=== PATIENT | female | born 1975 | race Caucasian/White ===

== ENCOUNTER 2016-03-24 14:20 | Emergency (ER) | payer MEDICAID ==
[~2016-03-24] VITALS: Wt 70.0 kg
[~2016-03-24 14:20] MED LIST: DOCU-144 PO
--- NOTE | 2016-03-24 14:43 | ERD ---
ER Documentation Chief Complaint Date/Time DATE: 03/24/16 TIME: 14:36 Chief Complaint COUGH AND CONGESTION AND FEVERS FOR THE PAST 10 DAYS. HPI The patient is a 40-year-old female with no significant past medical or surgical history here with 2 weeks of productive cough of yellow/green sputum, chest congestion, and tactile fevers intermittently. She denies nausea, vomiting , diarrhea, chest pain, shortness of breath, difficulty breathing, sore throat, ear pain, headache, neck soreness or stiffness, dysuria, flank pain, or any other symptoms or concerns at this time. She is a nonsmoker. Sick contacts in the home with same symptoms. No recent international travel. She has tried Robitussin for her cough without much relief. Her symptoms are neither improving nor worsening. ROS All systems reviewed and are negative except as per history of present illness. Medications Home Meds Active Scripts Albuterol Sulfate* (Ventolin HFA*) 18 Gm Hfa.aer.ad, 2 PUFF INHALATION Q6H, #1 INHALER Prov:SIERRA BARKER, SUPERVISOR BOILER REPAIR 03/24/16 Benzonatate* (Tessalon Perle*) 100 Mg Capsule, 100 MG PO Q8H Y for COUGH for 5 Days, CAP Prov:SIERRA BARKER, SUPERVISOR BOILER REPAIR 03/24/16 Azithromycin* (Zithromax*) 250 Mg Tablet, 250 MG PO .ZPACK DIRECTED, #6 TAB TAKE 500 MG (2 TABS) THE FIRST DAY THEN 250 MG (1 TAB) DAYS 2-5 Prov:SIERRA BARKER, SUPERVISOR BOILER REPAIR 03/24/16 Acetaminophen* (Tylenol*) 325 Mg Tablet, 2 TAB PO Q6 Y for PAIN AND OR ELEVATED TEMP, #20 TAB Prov:SIERRA BARKER, SUPERVISOR BOILER REPAIR 03/24/16 Docusate Sodium* (Colace*) 100 Mg Capsule, 100 MG PO TID, #30 CAP Prov:GEORGINA NIELSEN 07/21/15 Allergies Allergies: Coded Allergies: No Known Allergies (Verified Allergy, Mild, 01/16/10) PMhx/Soc History of Surgery: Yes (CS x2, LEFT KNEE SX) Anesthesia Reaction: No Hx Neurological Disorder: No Hx Respiratory Disorders: No Hx Cardiac Disorders: No Hx Psychiatric Problems: No Hx Miscellaneous Medical Probl: Yes (GASTRITIS) Hx Alcohol Use: No Hx Substance Use: No Hx Tobacco Use: No Physical Exam Vitals Vital Signs Date Time Temp Pulse Resp B/P Pulse Ox O2 Delivery O2 Flow Rate FiO2 03/24/16 14:22 98.8 78 20 113/57 98 Physical Exam INITIAL VITAL SIGNS: Reviewed by me, afebrile, no tachycardia, no tachypnea, oximetry 98% on room air. GENERAL: Alert. Well developed and well nourished. No respiratory distress. No acute distress. Nontoxic appearing. HEAD: Head is normocephalic. Atraumatic. No sinus tenderness to palpation. EYES: EOMI. No scleral icterus. No conjunctival injection. No clear or purulent drainage. ENT: External ears, nose, and mouth normal. Ear canals clear. Tympanic membranes without erythema, bulging, or effusion. Oropharynx is clear. Tonsils + 2 and without erythema or exudates. Uvula midline. Airway patent. Nasal passages patent and without rhinorrhea. Moist mucous membranes. NECK: Supple. Full range of motion. Trachea midline. No lymphadenopathy. RESPIRATORY: No tachypnea. Clear to auscultation bilaterally. No wheezing, rales , or rhonchi. CV: Regular rate and rhythm. No murmurs, rubs, or gallops ABDOMEN: Soft, non-distended, non-tender. Bowel sounds normal in all quadrants. BACK: No CVA tenderness. Full ROM. EXTREMITIES: No obvious deformity. No clubbing or cyanosis. No edema. SKIN: Warm and dry. No diaphoresis. No obvious rashes or lesions. NEUROLOGIC: Alert and oriented x 3. Appropriate. Face is symmetric. Speech is normal. Moves all extremities equally. Procedures/MDM Nursing Notes Reviewed Previous Medical Records requested via [employer]. EMERGENCY DEPARTMENT COURSE / MEDICAL DECISION MAKING: The patient comes to the ED secondary to productive cough of green/yellow sputum , chest congestion, and subjective fevers 2 weeks. Differential diagnosis upon initial evaluation includes but is not limited to: Pneumonia, sepsis, meningitis, bronchitis, viral syndrome, URI, and others. Given the patient's history of present illness, benign physical exam, oximetry 98% on room air, no tachypnea, no tachycardia, well appearance, no neck soreness or stiffness, no headache, and clear lung sounds, I have low suspicion at this time for pneumonia, sepsis, meningitis, or any other serious cause of the patient's symptoms. As such, I believe she is an appropriate candidate for outpatient management and follow-up at this time. Final impression: Bronchitis Based on patient's history of present illness and physical examination the decision was made to discharge. There is no evidence of life threatening injuries or illnesses at this time. On re-examination, patient resting in no distress, stable vital signs, reports feeling safe for discharge with outpatient follow up with PMD in 2-3 days. Patient given return precautions. She verbalized understanding and agreed to return precautions. All of her questions and concerns were addressed prior to discharge. She agrees with the plan of care and will follow up as directed. I believe treatment with antibiotics is warranted as her symptoms have lasted 2 weeks. I instructed the patient to please get plenty of fluids and plenty of rest, cover her cough, and perform good hand hygiene. She verbalized understanding and agreed. She will return immediately for any new or worsening symptoms. Prescription Azithromycin Tessalon Perles Albuterol inhaler Tylenol Departure Diagnosis: Primary Impression: Bronchitis Condition: Stable SIERRA BARKER NP Mar 24, 2016 14:43
[2016-03-24] MEDS ORDERED: BENZ100C70 PO (14:45)
[2016-03-24] MEDS ORDERED: ACET325T33 PO (14:45)
[2016-03-24] MEDS ORDERED: AZIT250T94 PO (14:45)
[2016-03-24] MEDS ORDERED: ALBU18HF INHALATION (14:46)
== END 2016-03-24 14:47 | disposition home or self-care (01) ==
LOC: FTE 14:20 → E/R 14:47
DX: J20.9 Acute bronchitis, unspecified (principal)
CPT/HCPCS: 99284

== ENCOUNTER 2016-11-21 13:37 | Emergency (ER) | payer MEDICAID ==
[~2016-11-21] VITALS: Wt 77.0 kg
[~2016-11-21 13:37] MED LIST changes: +ACET325T33 PO; +ALBU18HF INHALATION; +AZIT250T94 PO; +BENZ100C70 PO
[2016-11-21] MEDS ORDERED: KETOROLAC 30 MG INJ IM STA (14:18)
--- NOTE | 2016-11-21 14:26 | ERD ---
ER Documentation Chief Complaint Date/Time DATE: 11/21/16 TIME: 14:25 Chief Complaint left shoulder pain, onset 4 days HPI This is a 38-year-old female who presents the emergency department today complaining of left arm pain for many years since 2010 states it is getting worse. States that she has been told she has tendinitis. States she takes tramadol for pain. Denies any new trauma, fevers or chills. States he has an appointment next week at [facility]. ROS All systems reviewed and are negative except as per history of present illness. Medications Home Meds Active Scripts Naproxen* (Naprosyn*) 500 Mg Tablet, 500 MG PO BID Y for PAIN AND/OR INFLAMMATION, #30 TAB Prov:DENICE STOCK PA-C 11/21/16 Albuterol Sulfate* (Ventolin HFA*) 18 Gm Hfa.aer.ad, 2 PUFF INHALATION Q6H, #1 INHALER Prov:SIERRA BARKER, QUALITY ASSURANCE PRACTICE MANAGER 03/24/16 Benzonatate* (Tessalon Perle*) 100 Mg Capsule, 100 MG PO Q8H Y for COUGH for 5 Days, CAP Prov:SIERRA BARKER, QUALITY ASSURANCE PRACTICE MANAGER 03/24/16 Azithromycin* (Zithromax*) 250 Mg Tablet, 250 MG PO .ZPACK DIRECTED, #6 TAB TAKE 500 MG (2 TABS) THE FIRST DAY THEN 250 MG (1 TAB) DAYS 2-5 Prov:SIERRA BARKER, QUALITY ASSURANCE PRACTICE MANAGER 03/24/16 Acetaminophen* (Tylenol*) 325 Mg Tablet, 2 TAB PO Q6 Y for PAIN AND OR ELEVATED TEMP, #20 TAB Prov:SIERRA BARKER, QUALITY ASSURANCE PRACTICE MANAGER 03/24/16 Docusate Sodium* (Colace*) 100 Mg Capsule, 100 MG PO TID, #30 CAP Prov:GEORGINA NIELSEN 07/21/15 Allergies Allergies: Coded Allergies: No Known Allergies (Verified Allergy, Mild, 11/21/16) PMhx/Soc History of Surgery: Yes (CS x2, LEFT KNEE SX) Anesthesia Reaction: No Hx Neurological Disorder: No Hx Respiratory Disorders: No Hx Cardiac Disorders: No Hx Psychiatric Problems: No Hx Miscellaneous Medical Probl: Yes (GASTRITIS) Hx Alcohol Use: No Hx Substance Use: No Hx Tobacco Use: No Smoking Status: Never smoker Physical Exam Vitals Vital Signs Date Time Temp Pulse Resp B/P Pulse Ox O2 Delivery O2 Flow Rate FiO2 11/21/16 13:39 98.5 80 18 121/59 98 Physical Exam Const: NAD Head: Atraumatic Eyes: Normal Conjunctiva ENT: Normal External Ears, Nose and Mouth. Neck: Full range of motion..~ No meningismus. Resp: Clear to auscultation bilaterally Cardio: Regular rate and rhythm, no murmurs Abd: Soft, non tender, non distended. Normal bowel sounds Skin: No petechiae or rashes MSK: Left arm with no obvious deformity. No effusion. No ecchymosis. Decreased range of motion secondary to pain. Pain with internal rotation and elbow flexion. pulses 2+. Distal neurovascularly intact. Neur: Awake and alert Psych: Normal Mood and Affect Results 24 hrs Current Medications Medications (Trade) Dose Ordered Sig/Jennie Route PRN Reason Start Time Stop Time Status Last Admin Dose Admin Ketorolac Tromethamine (Toradol) 30 mg ONCE STAT IM 11/21/16 14:18 11/21/16 14:19 DC 11/21/16 14:37 Procedures/MDM This is a 41-year-old female who presents the emergency department today complaining of chronic arm pain 2010. Patient has seen an explosive ordnance specialist at [facility] and does have a follow-up appointment next week. It looks like on the patient's paperwork that she is being evaluated for cervical spine pathology and disc disease in addition to left shoulder and left knee tendinitis and arthritis. I have explained this to the patient. Patient currently takes tramadol 50 mg. Patient was requesting an x-ray and she has had no to new trauma and I explained to the patient that I do not feel this is beneficial at this time as I have low suspicion for acute fracture dislocation. I will give the patient a Toradol injection here in the emergency department to help with her pain. I also gave her prescription for Naprosyn. She may take that in addition to the tramadol that she was ready prescribed. I have also encouraged the patient to ask for referral for physical therapy. Patient was also given pain relieving techniques. Patient is afebrile and otherwise well-appearing. I have low suspicion for septic gout or joint. It is at this time is consistent with chronic left arm pain likely secondary to cervical disc disease and shoulder arthritis and tendinitis. At this time the patient is stable for discharge and outpatient management. Patient should follow up with their PCP in the next 1-2 days. They may return to the emergency department sooner for any persistent or worsening of symptoms. Patient understood and agreed with the plan. Departure Diagnosis: Primary Impression: Arm pain Laterality: left Qualified Code: M79.602 - Pain of left upper extremity Condition: Fair DENICE STOCK PA-C Nov 21, 2016 14:26
[2016-11-21] MEDS ORDERED: NAPR-260 PO (14:33)
== END 2016-11-21 14:41 | disposition home or self-care (01) ==
LOC: FTE 13:37
DX: M79.602 Pain in left arm (principal)
CPT/HCPCS: J1885; Z7502